=== PATIENT | female | born 1965 | race Two or more races ===

== ENCOUNTER → 2019-08-13 | Outpatient (CLI) | payer MEDICAID | END | disposition home or self-care (01) | LOC: LAB 07:35 | PROVIDERS: ATTEND Obstetrics & Gynecology | DX: Z01.818 Encounter for other preprocedural examination (principal); Z11.59 Encounter for screening for other viral diseases | CPT/HCPCS: C9803; U0003 ==

== ENCOUNTER 2019-08-17 07:06 | Day surgery (SDC) | payer MEDICAID ==
[~2019-08-17] VITALS: Ht 152.4 cm; Wt 69.4 kg
[2019-08-17] MEDS ORDERED: LACTATED RINGERS 1,000 ML IV SCH (07:30)
[2019-08-17 08:48] LABS: CLARITY URINE CLEAR (CLEAR); COLOR URINE YELLOW (YELLOW); KETONES URINE NEGATIVE (NEGATIVE); LEUKOCYTE ESTERASE URINE TRACE (NEGATIVE); NITRITE URINE NEGATIVE (NEGATIVE); OCCULT BLOOD URINE TRACE (NEGATIVE); PROTEIN URINE NEGATIVE (NEGATIVE); SPECIFIC GRAVITY URINE 1.016 (1.005-1.030); UROBILINOGEN URINE 0.2 E.U./dL (0.2-1.0)
[2019-08-17 08:50] LABS: UCG SCREEN NEGATIVE
[2019-08-17 09:04] LABS: BASOPHILS % 0.9 % (0.0-2.0); EOSINOPHILS % 2.3 % (0.0-5.0); HEMATOCRIT. 37.6 % (36.0-48.0); HEMOGLOBIN. 13.1 g/dL (12.0-16.0); LYMPHOCYTES % 38.3 % (20.0-50.0); MEAN CORPUSCULAR HEMOGLOBIN 32.5 pg (28.0-32.0); MEAN CORPUSCULAR VOLUME 93.5 fL (81.0-99.0); MEAN PLATELET VOLUME 9.3 fl (7.4-10.4); MONOCYTES % 6.8 % (2.0-8.0); NEUTROPHILS % 51.7 % (40.0-76.0); PLATELET 177 x1000/uL (130-400); RED BLOOD CELL COUNT 4.02 mill/uL (4.2-5.4); RED CELL DISTRIBUTION WIDTH 13.1 % (11.6-14.6)
[2019-08-17 09:08] LABS: CHLORIDE 109 mEq/L (98-107)
[2019-08-17 09:11] LABS: PARTIAL THROMBOPLASTIN TIME 29.2 sec (23.4-31.0); PROTHROMBIN TIME 10.5 sec (9.6-11.0)
[2019-08-17] MEDS ORDERED: ACET-2708 PO (09:41)
[2019-08-17] MEDS ORDERED: VASOPRESSIN 20 UNIT/ML 1ML ONE ×2 (13:36→14:20)
[2019-08-17] MEDS ORDERED: BUPIVACAINE HCL/PF 0.5% (5MG/ML) 10ML ONE (13:36)
[2019-08-17] MEDS ORDERED: SKIN ADHESIVE 0.7 GM EA TOP ONE (13:37)
[2019-08-17] MEDS ORDERED: FENTANYL CITRATE/PF 50MCG/ML 2ML VIAL ONE (14:13)
[2019-08-17] MEDS ORDERED: MIDAZOLAM HCL 2 MG/2 ML VIAL ONE (14:14)
[2019-08-17] MEDS ORDERED: PROPOFOL 200MG/20ML VIAL IV ONE (14:17)
[2019-08-17] MEDS ORDERED: LIDOCAINE HCL/PF 1% 10 MG/ML 5ML VIAL ONE (14:17)
[2019-08-17] MEDS ORDERED: SUCCINYLCHOLINE CHLORIDE 200MG/10ML IV ONE (14:18)
[2019-08-17] MEDS ORDERED: ROCURONIUM BROMIDE 10MG/ML VIAL 5ML IV ONE (14:18)
[2019-08-17] MEDS ORDERED: EPHEDRINE SULFATE 50MG/ML VIAL ONE (14:19)
[2019-08-17] MEDS ORDERED: SODIUM CHLORIDE 0.9% 10ML VIAL ONE (14:19)
[2019-08-17] MEDS ORDERED: ESMOLOL HCL 10MG/ML 10ML VIAL IV ONE (14:20)
[2019-08-17] MEDS ORDERED: ONDANSETRON HCL 4MG/2ML INJ ONE (14:36)
[2019-08-17] MEDS ORDERED: DEXAMETHASONE 4MG/ML 1ML VIAL ONE (14:36)
[2019-08-17] MEDS ORDERED: LABETALOL 5MG/ML SYR 20 MG/4 ML SYRINGE IV PRN (17:15)
[2019-08-17] MEDS ORDERED: HYDROMORPHONE HCL/PF 2MG/ML CPJ IV PRN (17:15)
[2019-08-17] MEDS ORDERED: ONDANSETRON HCL 4MG/2ML INJ IV PRN (17:15)
[2019-08-17] MEDS ORDERED: MEPERIDINE HCL/PF 25MG/ML CPJ IV PRN (17:15)
[2019-08-17] MEDS ORDERED: GLYCOPYRROLATE 0.2 MG/ML 2ML VIAL ONE (17:25)
[2019-08-17] MEDS ORDERED: NEOSTIGMINE METHYLSULFATE 1MG/ML 10 ML VIAL ONE (17:25)
[2019-08-17 20:09] VITALS: BP 135/72
== END 2019-08-17 22:45 | disposition home or self-care (01) ==
LOC: OR 07:06 → EDUNIT# 07:30 → OR 22:45
PROVIDERS: ATTEND Obstetrics & Gynecology
DX: D25.9 Leiomyoma of uterus, unspecified (principal); R10.2 Pelvic and perineal pain; N80.0 Endometriosis of uterus; Z79.899 Other long term (current) drug therapy; Z98.890 Other specified postprocedural states
CPT/HCPCS: 36415; 58553; 80048; 81003; 81025; 85025; 85610; 85730; 86850; 86900; 86901; 88307; J0330; J1100; J1170; J2250; J2405; J2704; J2710; J3010; J3490; S2900